=== PATIENT | female | born 2000 | race Caucasian/White ===

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

== ENCOUNTER 2019-01-03 18:10 | Emergency (ER) | payer OTHER ==
[~2019-01-03] VITALS: Ht 154.9 cm; Wt 47.7 kg
[2019-01-03 18:10] VITALS: BP 118/77
--- NOTE | 2019-01-03 19:36 | REP ---
Clinical: Left ankle injury. Technique: AP, lateral, bilateral oblique views of the left ankle. Findings: Lateral swelling consist with inversion injury. No acute fracture or dislocation. Impression: Lateral swelling. No fracture. Electronically Signed by Reymundo Hampton MD 01/03/2019 07:27 P
[2019-01-03] MEDS ORDERED: IBUP80TA PO (20:00)
== END 2019-01-03 20:11 | disposition home or self-care (01) ==
LOC: M ED 18:10
DX: S93.492A Sprain of other ligament of left ankle, initial encounter (principal); X50.1XXA Overexertion from prolonged static or awkward postures, initial encounter; Y92.099 Unspecified place in other non-institutional residence as the place of occurrence of the external cause; Y93.01 Activity, walking, marching and hiking; Y99.9 Unspecified external cause status